=== PATIENT | female | born 1960 | race Caucasian/White ===

== ENCOUNTER 2024-03-28 13:38 | Outpatient (RCR) | payer MEDICAID, SELFPAY ==
--- NOTE | 2024-04-01 21:32 | CTCFLWUP_ITS ---
Patient: SHAWNEE RUBIN : 1960 Page 5 of 6 FOLLOW UP NOTE DATE OF SERVICE: 03/29/2024 NAME: SHAWNEE RUBIN ACCOUNT: [id number] : 1960 AGE: 63 DIAGNOSIS: Recurrent follicular lymphoma S/p 6 cycles of R-CHOP (01/23/2008?05/07/2008) Covid infection 04/09/2020. S/p 6 cycles of bendamustine and rituximab (06/30/2020?10/28/2020) Status post maintenance rituximab every 2 months (01/01/2021?01/24/2023) REASON FOR TODAY?S VISIT: This is office follow-up visit. Ms. Rubin is here at [facility]. Patient at the last visit was complaining of abdominal fullness. Patient had a PET CT scan and is here for review. She also complains of mild occasional nausea. Denies any weigh t loss. Denies any fevers or night sweats. Denies any cough, chest pain or leg cramps. Ambulating well without any help. 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 11/24/2007: Patient had right facial submaxillary lymph node biopsy? 12/08/2007: Bone marrow biopsy and aspiration? 01/23/2008?05/07/2008: Patient had 6 cycles of Rituxan, Cytoxan and doxorubicin. For the first cycle she received vincristine. Unfortunately she developed significant constipation. Vincristine was dis continued. January 2020: Patient felt a small lump in the right side of the neck. February 2020: Patient started feeling a lump in the left axilla as well as a bloated feeling in the a bdomen. 02/14/2020: Left axillary mass fine-needle aspiration? 03/24/2020: PET CT scan? 04/09/2020: Ms. Rubin was diagnosed with Covid infection. Recovered well from the infection 05/14/2020: Bone marrow biopsy and aspiration? normal female karyotype, 46, XX 06/06/2020: Left axillary lymph node excision biopsy? 07/08/2020?09/03/2020: Ms. Rubin received 3 cycles of bendamustine and rituximab. 09/20/2020: PET CT scan? 01/01/2021: Patient is started on maintenance rituximab every 2 months. 03/03/2021: CT scan of the chest abdomen and pelvis with IV contrast? 02/16/2022: CT scan of the chest with IV contrast? 01/24/2023: Ms. Rubin had last dose of maintenance rituximab. PAST MEDICAL HISTORY: Non-Hodgkins?Lymphoma PAST SURGICAL HISTORY: MONICA-BSO -1989 Tonsillectomy - 1966 - 1988 MEDICATIONS: 1. clonazePAM - 1 mg 1 tab Every day before sleep 2. rOPINIRole - 0.5 mg 1 tab Daily 3. vitamin D3-vitamin K2 - 1,250-200 mcg 1 Capsule Daily 4. vitamin K2 - 180 mcg 1 Capsule Daily Medications Last Reconciled by Marcie Frost MA on 01/04/2024 ALLERGIES: Compazine REVIEW OF SYSTEMS: Neurological: No headache, seizures or blurring of vision. Gastrointestinal: No nausea, vomiting, diarrhea or constipation. Cardiovascular: No palpitations or angina pains. Respiratory: No cough, chest pain or shortness of breath. PHYSICAL EXAMINATION: VITAL SIGNS: Temperature?98.9, B/P?115/80, Oxygen?Saturation?97% Weight?152?lbs PAIN: 0 - No pain Conjunctiva pink. Neck is supple. No adenopathy palpable in the neck axilla or in the inguinal regions. Chest clear to auscultation. No wheezes or rails audible. Abdomen is soft. No hepatosplenomegaly palpable. Extremities no clubbing or cyanosis noted. LABORATORY DATA: Date Time ASSESSMENT: 1. Patient with history of recurrent follicular lymphoma treated twice with R-CHOP followed by treatm ent with BR in 2022 history of follicular lymphoma in 2007 treated with R-CHOP chemotherapy without vincristine as descri bed above. Recurrent follicular lymphoma. PET CT scan done prior to starting chemotherapy showed enlarged lymph nodes above and below the diaphragm as described above. Left axillary lymph node biopsy confirmed grade 1?2 follicular lymphoma. Status post 6 cycles of bendamustine and rituximab. Status post maintenance rituximab completed on 01/24/2023. Bone marrow biopsy and aspiration results came back negative for lymphoma involvement On April 09, 2020 patient was diagnosed with Covid infection Her recent PET CT scan in 03/01 is negative for recurrence Will check for LDH and uric acid CBC CMP and RTC in 6 months Patient will be followed with the labs and clinical examination every 6 months and imaging only if sy mptomatic or concerning physical findings. . Electronically Signed by: {Object.Sanct_ID*PnP.NameFL@M}, {Object.Sanct_ID*PnP.Suffix@U} D: {Object.Sanct_Date} T: {Object.Sanct_Time} CC: Munir?Nancie,? PCP: Qasim Jansen Referring: Qasim Jansen This document was completed utilizing speech recognition software. Grammatical errors, random word in sertions, pronoun errors, and incomplete sentences are an occasional consequence of this system due t o software limitations, ambient noise, and hardware issues. Any formal questions or concerns about th e content, text or information contained within the body of this dictation should be directly address ed to the provider for clarification.
== END 2024-04-07 23:59 | disposition home or self-care (01) ==
LOC: SCTC 13:38
PROVIDERS: PCP Family Medicine; Referring Provider Internal Medicine; Visit Provider Internal Medicine Hematology & Oncology
DX: Z08 Encounter for follow-up examination after completed treatment for malignant neoplasm (principal); Z85.72 Personal history of non-Hodgkin lymphomas; Z92.21 Personal history of antineoplastic chemotherapy; R11.0 Nausea
CPT/HCPCS: 99212; G0463

== ENCOUNTER → 2024-05-11 | Outpatient (CLI) | payer MEDICAID, SELFPAY ==
[2024-05-11 14:31] LABS: Basophils % (Auto) 0 % (0-2.5); Eosinophils # (Auto) 0.1 Thou/mm3 (0.0-0.5); Eosinophils % (Auto) 2 % (0-10); Hematocrit 43.1 % (36.0-46.0); Hemoglobin 14.4 g/dL (12.0-16.0); Immature Granulocytes % (Auto) 0 % (0-0); Immature Granulocytes Auto 0.02 Thou/mm3 (0.00-0.00); Lymphocytes # (Auto) 1.8 Thou/mm3 (1.0-4.8); Lymphocytes % (Auto) 31 % (10-50); Mean Corpuscular HGB Conc 33.4 g/dl (31.0-37.0); Mean Corpuscular Hemoglobin 30.2 pg (25.0-35.0); Mean Corpuscular Volume 90 fL (80-100); Monocytes # (Auto) 0.5 Thou/mm3 (0.0-0.8); Monocytes % (Auto) 9 % (0-12); Neutrophils # (Auto) 3.3 Thou/mm3 (1.8-7.7); Neutrophils % (Auto) 58 % (37-80); Nucleated Red Blood Cell % 0 /100 WBC (0); Platelet Count 234 Thou/mm3 (140-440); RDW Standard Deviation 42.6 fL (36.4-46.3); Red Blood Count 4.77 Miln/mm3 (4.00-5.20); White Blood Count 5.7 Thou/mm3 (3.6-11.0)
[2024-05-11 15:02] LABS: Alanine Aminotransferase 22 U/L (10-49); Albumin/Globulin Ratio 2.8 (1.2-2.2); Alkaline Phosphatase 88 U/L (46-116); Anion Gap 8 (7-16); Aspartate Amino Transferase 14 U/L (0-34); BUN/Creatinine Ratio 13 Ratio (12-20); Bilirubin,Total 0.8 mg/dL (0.3-1.2); Blood Urea Nitrogen 13 mg/dL (9-23); C-Reactive Protein < 0.4 mg/dL (0.0-0.9); Carbon Dioxide 28.6 mMol/L (20.0-31.0); Chloride 104 mMol/L (98-107); Globulin 1.8 gm/dL (2.3-3.5); Glucose 96 mg/dL (74-106); LDH (Lactate Dehydrogenase) 195 U/L (120-246); Osmolality,Calculated 281 (275-295); Potassium 4.2 mMol/L (3.4-5.1); Sodium 141 mMol/L (136-145); Total Protein 6.8 gm/dL (5.7-8.2); Vitamin B12 387 pg/mL (211-911); Vitamin D 25 Hydroxy Total 25.5 ng/mL (7.3-40.2); eGFR > 60 See Note
[2024-05-11 15:03] LABS: Sed Rate (ESR) 6 mm/hr (0-30)
[2024-05-17 06:26] LABS: ANA Screen, IFA NEGATIVE (NEGATIVE); T3,Total* 90 ng/dL (76-181)
== END | disposition home or self-care (01) ==
LOC: COPL 12:40
PROVIDERS: PCP Family Medicine; Referring Provider Orthopaedic Surgery; Visit Provider Orthopaedic Surgery
DX: G60.9 Hereditary and idiopathic neuropathy, unspecified (principal)
CPT/HCPCS: 36415; 80053; 82306; 82607; 83615; 83735; 84480; 85025; 85652; 86038; 86140

== ENCOUNTER → 2024-06-18 | Outpatient (CLI) | payer MEDICAID, SELFPAY ==
--- NOTE | 2024-06-18 | XR_ITS ---
EXAMINATION: Ankle, right 3 views . Technique: Ankle AP, oblique, lateral 3 views Date and time of exam: June 18, 2024 at 1221 hours INDICATIONS: Patient fell 2 days ago with injury to the ankle, ankle pain. FINDINGS: Moderate osteopenia No fracture or dislocation No foreign body IMPRESSION: No fracture or dislocation
== END | disposition home or self-care (01) ==
LOC: CDIM 11:08
PROVIDERS: PCP Family Medicine; Referring Provider Orthopaedic Surgery; Visit Provider Orthopaedic Surgery
DX: S99.911A Unspecified injury of right ankle, initial encounter (principal); W19.XXXA Unspecified fall, initial encounter
CPT/HCPCS: 73600

== ENCOUNTER → 2024-06-27 | Outpatient (CLI) | payer MEDICAID, SELFPAY ==
[2024-06-27 12:16] LABS: Basophils % (Auto) 1 % (0-2.5); Eosinophils # (Auto) 0.1 Thou/mm3 (0.0-0.5); Eosinophils % (Auto) 2 % (0-10); Hematocrit 40.6 % (36.0-46.0); Immature Granulocytes % (Auto) 1 % (0-0); Immature Granulocytes Auto 0.03 Thou/mm3 (0.00-0.00); Lymphocytes % (Auto) 35 % (10-50); Mean Corpuscular HGB Conc 34.5 g/dl (31.0-37.0); Mean Corpuscular Hemoglobin 30.6 pg (25.0-35.0); Mean Corpuscular Volume 89 fL (80-100); Monocytes # (Auto) 0.5 Thou/mm3 (0.0-0.8); Monocytes % (Auto) 8 % (0-12); Neutrophils % (Auto) 53 % (37-80); Nucleated Red Blood Cell % 0 /100 WBC (0); Platelet Count 206 Thou/mm3 (140-440); RDW Standard Deviation 42.3 fL (36.4-46.3); Red Blood Count 4.57 Miln/mm3 (4.00-5.20); White Blood Count 5.7 Thou/mm3 (3.6-11.0)
[2024-06-27 12:39] LABS: Alanine Aminotransferase 29 U/L (10-49); Albumin, Serum 4.4 gm/dL (3.4-4.8); Albumin/Globulin Ratio 2.6 (1.2-2.2); Alkaline Phosphatase 109 U/L (46-116); Anion Gap 9 (7-16); Aspartate Amino Transferase 23 U/L (0-34); BUN/Creatinine Ratio 14 Ratio (12-20); Bilirubin,Total 0.5 mg/dL (0.3-1.2); Blood Urea Nitrogen 14 mg/dL (9-23); Calcium 9.7 mg/dL (8.3-10.6); Calcium (Corrected) 9.7 mg/dL (8.5-10.1); Carbon Dioxide 29.1 mMol/L (20.0-31.0); Chloride 104 mMol/L (98-107); Globulin 1.7 gm/dL (2.3-3.5); Glucose 111 mg/dL (74-106); LDH (Lactate Dehydrogenase) 179 U/L (120-246); Osmolality,Calculated 284 (275-295); Potassium 4.1 mMol/L (3.4-5.1); Sodium 142 mMol/L (136-145); Total Protein 6.1 gm/dL (5.7-8.2); Uric Acid 5.8 mg/dL (3.1-7.8); eGFR > 60 See Note
== END | disposition home or self-care (01) ==
PROVIDERS: PCP Internal Medicine Hematology & Oncology; Referring Provider Internal Medicine Hematology & Oncology; Visit Provider Internal Medicine Hematology & Oncology
DX: C85.88 Other specified types of non-Hodgkin lymphoma, lymph nodes of multiple sites (principal)
CPT/HCPCS: 36415; 80053; 83615; 84550; 85025

== ENCOUNTER 2024-06-28 11:28 | Outpatient (RCR) | payer MEDICAID, SELFPAY ==
--- NOTE | 2024-06-28 15:16 | CTCFLWUP_ITS ---
Patient: SHAWNEE RUBIN : 1960 Page 2 of 2 FOLLOW UP NOTE DATE OF SERVICE: 06/28/2024 NAME: SHAWNEE RUBIN ACCOUNT: [id number] : 1960 AGE: 64 INTERVAL HISTORY: Patient doing well. No night sweats or appetite changes. Denies any weight loss. Denies any lumps or bumps anywhere ONCOLOGY HISTORY: DIAGNOSIS: Other specified types of non-Hodgkin lymphoma, lymph nodes of multiple sites [ICD10] C85.88 Recurrent follicular lymphoma S/p 6 cycles of R-CHOP (01/23/2008?05/07/2008) Covid infection 04/09/2020. 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 11/24/2007: Patient had right facial submaxillary lymph node biopsy? 12/08/2007: Bone marrow biopsy and aspiration? 01/23/2008?05/07/2008: Patient had 6 cycles of Rituxan, Cytoxan and doxorubicin. For the first cycle she received vincristine. Unfortunately she developed significant constipation. Vincristine was discontinued. January 2020: Patient felt a small lump in the right side of the neck. February 2020: Patient started feeling a lump in the left axilla as well as a bloated feeling in the abdomen. 02/14/2020: Left axillary mass fine-needle aspiration? 03/24/2020: PET CT scan? 04/09/2020: Ms. Rubin was diagnosed with Covid infection. Recovered well from the infection 05/14/2020: Bone marrow biopsy and aspiration? normal female karyotype, 46, XX 06/06/2020: Left axillary lymph node excision biopsy? 07/08/2020?09/03/2020: Ms. Rubin received 3 cycles of bendamustine and rituximab. 09/20/2020: PET CT scan? 01/01/2021: Patient is started on maintenance rituximab every 2 months. 03/03/2021: CT scan of the chest abdomen and pelvis with IV contrast? 02/16/2022: CT scan of the chest with IV contrast? 01/24/2023: Ms. Rubin had last dose of maintenance rituximab. 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 clonazePAM - 1 mg 1 tab Every day before sleep 2. Lyrica - 75 mg 1 Capsule Every day before sleep 3. rOPINIRole - 0.5 mg 1 tab Daily 4. vitamin D3-vitamin K2 - 1,250-200 mcg 1 Capsule Daily 5. vitamin K2 - 180 mcg 1 Capsule Daily Medications Last Reconciled by Erlinda Barlow MA on 06/28/2024 ALLERGIES: Compazine REVIEW OF SYSTEMS: A complete 14-point review of systems was performed and is negative except as noted in interval history. PHYSICAL EXAMINATION: VITAL SIGNS: Temperature?99.4, B/P?138/85, Oxygen?Saturation?95% Weight?156?lbs PAIN: 0 - No pain ECOG Performance Status: 0 - Asymptomatic and fully active Conjunctiva pink. Neck is supple. No adenopathy palpable in the neck axilla or in the inguinal regions. Chest clear to auscultation. No wheezes or rails audible. Abdomen is soft. No hepatosplenomegaly palpable. Extremities no clubbing or cyanosis noted. LABORATORY DATA: I have personally reviewed and interpreted each of the patient?s relevant lab tests, abnormal findings are below: Date 06/27/24 ??WHITE?BLOOD?COUNT?(Thou/mm3) 5.7 ??RED?BLOOD?COUNT?(Miln/mm3) 4.57 ??HEMOGLOBIN?(gm/dl) 14.0 ??HEMATOCRIT?(%) 40.6 ??PLATELET?COUNT?(Thou/mm3) 206 ??NEUTROPHILS?%,?AUTO?(%) 53 ??LYMPH?%,?AUTO?(%) 35 ??NEUTROPHILS,?AUTO?(Thou/mm3) 3.0 ASSESSMENT/PLAN: Non-Hodgkin lymphoma Patient have diagnosis of follicular lymphoma after he she had a biopsy of left axillary lymph node grade 1-2 Initially diagnosed in 2007 and was treated with R-CHOP without vincristine Recurrence in 2021 Bone marrow biopsy was negative Status post 6 cycles of Bendamustine and rituximab. and was treated with BR followed by maintenance rituximab. Completed on 01/24/2023 Patient since then is cancer free Today clinical examination negative 02/16/[address] scan negative for any cancer recurrence CBC CMP LDH uric acid CT scan RETURN TO CLINIC: 6 months BILLING AND COMPLIANCE: I reviewed external records from providers outside my specialty as summarized above. I spent a total of 50 minutes on this patient?s care on the day of their visit excluding time spent related to any billed procedures. This time includes time spent with the patient as well as time spent documenting in the medical record, reviewing patients records and tests, obtaining history, placing orders, communicating with other healthcare professionals, counseling the patient, family or caregiver, and/or care coordination for the diagnoses above. Electronically Signed by: Carlos Chao MD T: 3:14 PM CC: Lynn? PCP: Carlos Chao Referring: Carlos Chao This document was completed utilizing speech recognition software. Grammatical errors, random word insertions, pronoun errors, and incomplete sentences are an occasional consequence of this system due to software limitations, ambient noise, and hardware issues. Any formal questions or concerns about the content, text or information contained within the body of this dictation should be directly addressed to the provider for clarification.
== END 2024-07-06 23:59 | disposition home or self-care (01) ==
LOC: SCTC 11:28
PROVIDERS: PCP Family Medicine; Referring Provider Internal Medicine Hematology & Oncology; Visit Provider Internal Medicine Hematology & Oncology
DX: Z08 Encounter for follow-up examination after completed treatment for malignant neoplasm (principal); Z85.72 Personal history of non-Hodgkin lymphomas; Z92.21 Personal history of antineoplastic chemotherapy
CPT/HCPCS: 99212; G0463

== ENCOUNTER → 2024-07-30 | Outpatient (CLI) | payer MEDICAID, SELFPAY ==
--- NOTE | 2024-07-30 14:00 | XR_ITS ---
Examination: Bone densitometry Date and time of exam:July 30, 2024 1412 hours INDICATIONS: Hysterectomy age 32, family history, mother, osteoporosis, personal diagnosis non-Hodgkin's lymphoma Technique: Lumbar spine and hip total bone mineralization values of an calculated. Peak reference and age match control results have been displayed. Findings: Lumbar spine total bone mineralization is0.854 gm/cm2. This is 1.8 standard deviations below peak reference. This is 0.2 standard deviations low age-matched controls. Hip total bone mineralization is 0.765 gm/cm2 This is 1.4 standard deviations below peak reference. This is 0.4 standard deviations below age-matched controls Impression: There is osteopenia based on lumbar spine measurements. There is osteoporosis based on hip measurements
== END | disposition home or self-care (01) ==
LOC: CDIM 13:42
PROVIDERS: PCP Family Medicine; Referring Provider Internal Medicine Hematology & Oncology; Visit Provider Internal Medicine Hematology & Oncology
DX: M85.88 Other specified disorders of bone density and structure, other site (principal); M81.0 Age-related osteoporosis without current pathological fracture; C85.88 Other specified types of non-Hodgkin lymphoma, lymph nodes of multiple sites
CPT/HCPCS: 77080

== ENCOUNTER → 2024-09-17 | Outpatient (CLI) | payer MEDICAID, SELFPAY ==
[2024-09-17 14:24] LABS: Basophils % (Auto) 0 % (0-2.5); Eosinophils # (Auto) 0.2 Thou/mm3 (0.0-0.5); Eosinophils % (Auto) 2 % (0-10); Hematocrit 43.2 % (36.0-46.0); Hemoglobin 14.6 g/dL (12.0-16.0); Immature Granulocytes % (Auto) 0 % (0-0); Immature Granulocytes Auto 0.03 Thou/mm3 (0.00-0.00); Lymphocytes # (Auto) 2.5 Thou/mm3 (1.0-4.8); Lymphocytes % (Auto) 29 % (10-50); Mean Corpuscular HGB Conc 33.8 g/dl (31.0-37.0); Mean Corpuscular Hemoglobin 30.2 pg (25.0-35.0); Mean Corpuscular Volume 89 fL (80-100); Monocytes # (Auto) 0.8 Thou/mm3 (0.0-0.8); Monocytes % (Auto) 9 % (0-12); Neutrophils # (Auto) 5.2 Thou/mm3 (1.8-7.7); Neutrophils % (Auto) 60 % (37-80); Nucleated Red Blood Cell % 0 /100 WBC (0); Platelet Count 229 Thou/mm3 (140-440); RDW Standard Deviation 41.5 fL (36.4-46.3); Red Blood Count 4.84 Miln/mm3 (4.00-5.20); White Blood Count 8.7 Thou/mm3 (3.6-11.0)
[2024-09-17 14:34] LABS: Alanine Aminotransferase 35 U/L (10-49); Albumin, Serum 4.7 gm/dL (3.4-4.8); Albumin/Globulin Ratio 2.2 (1.2-2.2); Alkaline Phosphatase 87 U/L (46-116); Anion Gap 11 (7-16); Aspartate Amino Transferase 25 U/L (0-34); BUN/Creatinine Ratio 15 Ratio (12-20); Bilirubin,Total 0.6 mg/dL (0.3-1.2); Blood Urea Nitrogen 16 mg/dL (9-23); Calcium 9.6 mg/dL (8.3-10.6); Calcium (Corrected) 9.6 mg/dL (8.5-10.1); Carbon Dioxide 29.5 mMol/L (20.0-31.0); Chloride 103 mMol/L (98-107); Creatinine (Component) 1.1 mg/dL (0.6-1.3); Globulin 2.1 gm/dL (2.3-3.5); Glucose 101 mg/dL (74-106); Osmolality,Calculated 286 (275-295); Potassium 4.6 mMol/L (3.4-5.1); Sodium 143 mMol/L (136-145); Total Protein 6.8 gm/dL (5.7-8.2); eGFR 57 See Note
== END | disposition home or self-care (01) ==
LOC: SCTO 13:11
PROVIDERS: PCP Family Medicine; Referring Provider Internal Medicine Hematology & Oncology; Visit Provider Internal Medicine Hematology & Oncology
DX: C85.88 Other specified types of non-Hodgkin lymphoma, lymph nodes of multiple sites (principal)
CPT/HCPCS: 36415; 80053; 85025

== ENCOUNTER → 2024-11-29 | Outpatient (CLI) | payer BC, SELFPAY ==
--- NOTE | 2024-11-29 09:19 | XR_ITS ---
Examination: Diagnostic digital mammography, unilateral, left Computer aided detection 3-D breast Tomosynthesis, unilateral Date and time of exam: November 29, 2024 0925 hours INDICATIONS: Mammogram March 06, 2024 focal asymmetry retroareolar region left breast Technique: Nonmagnified MLO, CC views of the left breast have been obtained, reconstructed from 3-D Tomosynthesis images. R2 computer aided detection program utilized for evaluation of suspicious masses and/or abnormal calcifications. 3-D Tomosynthesis images obtained. Findings: Scattered areas of fibroglandular density Stable asymmetry retroareolar region left breast Impression: BI-RADS category 2: Benign findings,. Recommend 6 6 month bilateral mammography follow-up
== END | disposition home or self-care (01) ==
PROVIDERS: Referring Provider Internal Medicine Hematology & Oncology; Visit Provider Internal Medicine Hematology & Oncology
DX: R92.322 Mammographic fibroglandular density, left breast (principal); C85.88 Other specified types of non-Hodgkin lymphoma, lymph nodes of multiple sites
CPT/HCPCS: 77061; 77065; G0279

== ENCOUNTER 2025-01-11 16:53 | Emergency (ER) | payer BC, SELFPAY ==
--- NOTE | 2025-01-11 16:57 | EKG_ITS ---
[facility] Test Date: 2025-01-11 Pat Name: ZELDA ORTEGA Department: Room: - Gender: Female Accident Report Clerk: : 1960 Requested By: ED Temporary Provider Order Number: [id number] Reading MD: ED Temporary Provider Measurements Intervals [place] Rate: 115 P: 34 SC: 151 QRS: -36 QRSD: 84 T: 31 QT: 361 QTc: 500 Interpretive Statements SINUS TACHYCARDIA WITH OCCASIONAL VENTRICULAR PREMATURE COMPLEXES WITH FREQUENT SUPRAVENTRICULAR PREMATURE COMPLEXES LEFT AXIS DEVIATION [QRS AXIS < -30] LOW QRS VOLTAGE IN PRECORDIAL LEADS [QRS DEFLECTION < 1.0 mV IN CHEST LEADS] POSSIBLE ANTERIOR MYOCARDIAL INFARCTION , PROBABLY OLD [30 ms Q WAVE IN V3/V4, OR R < 0.2 mV IN V4] Compared to ECG 06/05/2020 09:40:08 Ventricular premature complex(es) now present Left-axis deviation now present Myocardial infarct finding now present Sinus rhythm no longer present /store/[id number].pdf
--- NOTE | 2025-01-11 16:57 | EKG_ITS ---
[facility] Test Date: 2025-01-11 Pat Name: ZELDA ORTEGA Department: Room: - Gender: Female [employer]: : 1960 Requested By: ED Temporary Provider Order Number: [id number] Reading MD: ED Temporary Provider Measurements Intervals [place] Rate: 111 P: 30 UT: 161 QRS: -43 QRSD: 82 T: 34 QT: 329 QTc: 447 Interpretive Statements SINUS TACHYCARDIA WITH OCCASIONAL ECTOPIC PREMATURE COMPLEXES POSSIBLE LEFT ATRIAL ENLARGEMENT [-0.1mV P-WAVE IN V1/V2] LEFT AXIS DEVIATION [QRS AXIS < -30] LOW QRS VOLTAGE IN PRECORDIAL LEADS [QRS DEFLECTION < 1.0 mV IN CHEST LEADS] POSSIBLE ANTERIOR MYOCARDIAL INFARCTION , PROBABLY OLD [30 ms Q WAVE IN V3/V4, OR R < 0.2 mV IN V4] Compared to ECG 06/05/2020 09:40:08 Left-axis deviation now present Myocardial infarct finding now present Sinus rhythm no longer present /store/[id number].pdf
[2025-01-11 17:05] VITALS: BP 143/89; PULSE 115; RESP 20; TEMP 37.3; O2SAT 96; BMI 27.1
--- NOTE | 2025-01-11 17:14 | XR_ITS ---
Examination: PA lateral chest 2 views Technique: Upright PA lateral chest 2 views Date and time: January 11, 2025, 1720 hrs. Indications: Shortness of breath weakness dizziness beginning 3 days ago. Findings: Normal heart size. Lungs are clear. The osseous structures are intact. Impression: No active disease.
--- NOTE | 2025-01-11 17:14 | PD.EDRME ---
Rapid Medical Screening Exam RME Arrival date/time: 01/11/25 16:53 64-year-old female with no known medical history presents to the emergency room with a chief complaint of palpitations, chest pain x 3 days I have greeted and performed a focused initial assessment of this patient. A comprehensive ED assessment and evaluation of the patient, analysis of all test results, and completion of the medical decision making process will be conducted by additional ED providers. Chief Complaint: Arrhythmia/Palpitations Vital signs: Vital Signs Temperature 99.2 F 01/11/25 17:05 Pulse Rate 115 H 01/11/25 17:05 Respiratory Rate 20 01/11/25 17:05 Blood Pressure 143/89 H 01/11/25 17:05 Pulse Oximetry (%) 96 01/11/25 17:05 Oxygen Delivery Method Room Air 01/11/25 17:05 Vital signs reviewed by provider: Yes
[2025-01-11 17:57] LABS: Basophils # (Auto) 0.1 Thou/mm3 (0.0-0.2); Basophils % (Auto) 1 % (0-2.5); Eosinophils # (Auto) 0.2 Thou/mm3 (0.0-0.5); Eosinophils % (Auto) 2 % (0-10); Hematocrit 42.9 % (36.0-46.0); Hemoglobin 14.7 g/dL (12.0-16.0); Immature Granulocytes Auto 0.02 Thou/mm3 (0.00-0.00); Lymphocytes # (Auto) 3.0 Thou/mm3 (1.0-4.8); Lymphocytes % (Auto) 35 % (10-50); Mean Corpuscular HGB Conc 34.3 g/dl (31.0-37.0); Mean Corpuscular Hemoglobin 30.8 pg (25.0-35.0); Mean Corpuscular Volume 90 fL (80-100); Monocytes # (Auto) 0.7 Thou/mm3 (0.0-0.8); Monocytes % (Auto) 8 % (0-12); Neutrophils # (Auto) 4.6 Thou/mm3 (1.8-7.7); Neutrophils % (Auto) 54 % (37-80); Nucleated Red Blood Cell # 0.00 Thou/mm3 (0.00-0.00); Nucleated Red Blood Cell % 0 /100 WBC (0); Platelet Count 212 Thou/mm3 (140-440); RDW Standard Deviation 42.5 fL (36.4-46.3); Red Blood Count 4.78 Miln/mm3 (4.00-5.20); White Blood Count 8.5 Thou/mm3 (3.6-11.0)
[2025-01-11 18:04] LABS: Collection Type, Urine Clean Catch
[2025-01-11 18:08] LABS: B-Type Natriuretic Peptide 32 pg/mL (0-100)
[2025-01-11 18:10] LABS: Bilirubin,Urine Negative (Negative); Blood,Urine 1+ (Negative); Clarity,Urine Clear (Clear/Hazy); Color,Urine Lt-Yellow (Lt Yel-Yel); Culture Indicated,Urine Not Indicated; Glucose, Urine Negative (Negative); Ketones,Urine Negative (Negative); Leukocyte Esterase,Urine Positive (Negative); Nitrite,Urine Negative (Negative); PH,Urine 5.5 (5.0-7.0); Protein,Urine Negative (Neg - Trace); RBC,Urine 3 /hpf (0-3); Specific Gravity,Urine 1.014 (1.001-1.035); Squamous Epithelial Cell,Urine < 1 /hpf (0-5); Urobilinogen,Urine Negative mg/dL (0.0-1.0); WBC,Urine 9 /hpf (0-5)
[2025-01-11 18:10] LABS: INR 1.0 (0.9-1.3); Partial Thromboplastin Time 24.9 Seconds (22.0-36.0); Prothrombin Time 10.9 Seconds (9.0-12.2)
[2025-01-11 18:13] LABS: Alanine Aminotransferase 28 U/L (10-49); Albumin, Serum 4.8 gm/dL (3.4-4.8); Albumin/Globulin Ratio 2.7 (1.2-2.2); Alkaline Phosphatase 82 U/L (46-116); Anion Gap 12 (7-16); Aspartate Amino Transferase 24 U/L (0-34); BUN/Creatinine Ratio 10 Ratio (12-20); Bilirubin,Total 0.7 mg/dL (0.3-1.2); Blood Urea Nitrogen 13 mg/dL (9-23); Calcium 10.4 mg/dL (8.3-10.6); Calcium (Corrected) 10.4 mg/dL (8.5-10.1); Carbon Dioxide 27.3 mMol/L (20.0-31.0); Chloride 105 mMol/L (98-107); Creatinine (Component) 1.3 mg/dL (0.6-1.3); Estimated Creatinine Clearance 43.6 mL/min (>60); Free T4 (Free Thyroxine) 1.48 ng/dL (0.89-1.76); Globulin 1.8 gm/dL (2.3-3.5); Glucose 112 mg/dL (74-106); Magnesium 1.9 mg/dL (1.6-2.6); Osmolality,Calculated 287 (275-295); Potassium 3.4 mMol/L (3.4-5.1); Sodium 144 mMol/L (136-145); Thyroid Stimulating Hormone 2.95 uIU/mL (0.55-4.78); Total Protein 6.6 gm/dL (5.7-8.2); Troponin I < 0.020 ng/mL (0.0-0.045); eGFR 46 See Note
[2025-01-11 18:36] VITALS: BP 112/89; PULSE 89; RESP 18; TEMP 37.1; O2SAT 97
[2025-01-11 18:41] VITALS: PULSE 108
--- NOTE | 2025-01-11 18:41 | PD.EDARRY ---
ED Arrhythmia Palp. RME/HPI General Chief Complaint: Arrhythmia/Palpitations Stated Complaint: ARRYTHMIAS X 3 DAYS, WORSE TODAY/DIZZY, LIGHTHEADE Time Seen by Provider: 01/11/25 17:15 Arrival date/time: 01/11/25 16:53 RME / HPI RME / HPI narrative: 01/11/25 16:53 64-year-old female with no known medical history presents to the emergency room with a chief complaint of palpitations, chest pain x 3 days I have greeted and performed a focused initial assessment of this patient. A comprehensive ED assessment and evaluation of the patient, analysis of all test results, and completion of the medical decision making process will be conducted by additional ED providers. ------ Dr. Corado?s Main ED Evaluation: 64yo female with a history of non-Hodgkin's lymphoma in remission for the last 2 years presents to the ED for a chief complaint of palpitations for the last 2 days. Patient's palpitations were initially intermittent, but became constant today. She reports associated lightheadedness, a headache described as pressure in nature, shortness of breath, and general malaise. She was unable to walk around the grocery store today without feeling short of breath and fatigued, so she came in for evaluation. Patient denies any chest pain. Denies any consumption of energy drink, new medications, or illicit drug use. Patient does take Pregablin for neuropathy. Related Data Home Medications ?Medication ?Instructions ?Recorded ?Confirmed clonazepam 1 mg tablet 1 mg PO QDAY 05/13/20 06/05/20 ropinirole 0.5 mg tablet 1 mg PO QDAY 01/11/25 01/11/25 Previous Rx's ?Medication ?Instructions ?Recorded metoclopramide HCl 10 mg tablet 10 mg PO Q6H PRN nausea and 07/11/20 (Reglan) vomiting #20 tabs metoprolol tartrate 25 mg tablet 25 mg PO QDAY #30 tabs 01/11/25 Allergies Allergy/AdvReac Type Severity Reaction Status Date / Time prochlorperazine Allergy Severe Anaphylaxis Verified 06/06/20 15:16 Review of Systems Review of Systems Systems Reviewed: All systems reviewed, normal except as documented Past Medical History Past Medical History NEUROLOGIC: Negative Neurological Disorders, Seizures or Migraine CARDIAC: Negative Cardiac Disorders, Hypercholesterolemia or Congestive Heart Failure RESPIRATORY: Negative Chronic Obstructive Pulmonary Disease (COPD), Asthma, Bronchitis, Pneumonia or Sleep Apnea GASTROINTESTINAL: Positive Gastrointestinal Disorders, Hiatal Hernia and Gastroesophageal Reflux Disease GENITOURINARY: Negative Genitourinary Disorders or Renal Disease REPRODUCTIVE: Positive Previous Pregnancies MUSCULOSKELETAL: Positive Musculoskeletal Disorders; Negative Arthritis or Fractures ENT: Positive Cataracts ENDOCRINE: Negative Endocrine Disorders, Diabetes Mellitus Type 1 or Diabetes Mellitus Type 2 HEMATOLOGIC: Negative Anemia PSYCHO/SOCIAL: Positive Depression and Anxiety OTHER HISTORY: Positive Chemotherapy (//), Chicken Pox, Mumps and Cancer (non hodgekins lymphoma); Negative Shingles, Falls, Blood Transfusions, Blood Transfusion Reaction, Anesthesia Reactions, Radiation Therapy or Measles Family History FAMILY HISTORY: Positive Family Cardiac Disorders and Family Gastrointestinal Problems Surgical History SURGICAL: Positive Tonsillectomy and Hysterectomy; Negative Abdominal Surgery Social History SMOKING STATUS: Never smoker ED Exam Narrative Physical exam: Generally patient is alert not obviously tachypneic and in no obvious distress, heart regular rate and rhythm in the 90s, lungs clear to auscultation equal bilaterally, neck showed no goiter, extremities show no edema, neurologic exam no focal motor deficits with Alesha Coma Scale 15, skin is warm pale and dry Course Course Course Narrative: CXR is ordered for determining the etiology of palpitations. Quality Measures none Orders Category Date Time Status EKG (ED ONLY) *Do not use* NOW Care 01/11/25 16:57 Completed EKG (ED Only) Stat Exams 01/11/25 16:57 Ordered EKG (ED Only) Urgent Exams 01/11/25 16:57 Draft XR chest 2V Stat Exams 01/11/25 17:14 Completed B-Type Natriuretic Peptide Stat Lab 01/11/25 17:34 Completed CBC Stat Lab 01/11/25 17:34 Completed Comprehensive Metabolic Panel Stat Lab 01/11/25 17:34 Completed Free T4 (Free Thyroxine) Stat Lab 01/11/25 17:34 Completed Magnesium Stat Lab 01/11/25 17:34 Completed Partial Thromboplastin Time Stat Lab 01/11/25 17:34 Completed Prothrombin Time with INR Stat Lab 01/11/25 17:34 Completed TSH [Thyroid Stimulating Hormone] Stat Lab 01/11/25 17:34 Completed Troponin I Stat Lab 01/11/25 17:34 Completed Urinalysis, C/S if Indicated Stat Lab 01/11/25 17:45 Completed Vital Signs Vital signs: Vital Signs Temperature 99.2 F 01/11/25 17:05 Pulse Rate 115 H 01/11/25 17:05 Respiratory Rate 20 01/11/25 17:05 Blood Pressure 143/89 H 01/11/25 17:05 Pulse Oximetry (%) 96 01/11/25 17:05 Oxygen Delivery Method Room Air 01/11/25 17:05 Arrhythmia/Palpitations MDM Narrative MDM Narrative:: Scribe Attestation: 01/11/25 - Jose, Laine George am scribing for and in the presence of Dr. Corado. Differential diagnosis: Anemia, pulmonary hypertension, pulmonary embolism, acidosis, acute coronary syndrome, cardiac tamponade, electrolyte abnormality I interpreted all labs. There was no significant abnormality. No electrolyte abnormality. Thyroid was normal. EKG done at 5:01 PM shows sinus tachycardia at a rate of 115 with occasional PACs. No ischemic changes. Chest x-ray was normal. CT scan of the chest with IV contrast showed no evidence of pulmonary embolism and no acute abnormality without evidence for right ventricular enlargement or cardiac tamponade. I do long discussion with the patient about the findings. There was no anemia. We will try the patient on metoprolol 25 mg p.o. x 1 here in the emergency room. Metoprolol as prescribed. 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 Thomas which she is to keep. Take the metoprolol as prescribed. Return to ER as needed or condition worsens. Patient data External records reviewed:: [facility] previous records (Per chart review, patient was seen here on 07/11/20 for acute hypokalemia.) Clinical information provided by:: patient Social determinants that could affect healthcare access:: none Patient has the following chronic illnesses:: Non-Hodgkin lymphoma in remission How is presenting disease/condition affected by chronic disease/condition?: uneffected by Evaluation data The following diagnostics were reviewed and interpreted by me:: lab results, radiology exam(s) and EKG tracing(s) Lab and/or radiology exams considered but not ordered:: none Interpretation Summary: [facility] Report Signed Patient: ZELDA ORTEGA. Record#: [id number] Birthdate: 1960 Age/Sex: 64 / F Location: [facility] Attending Dr: Ordering Physician: Kristopher PerezP Date of Service: 01/11/25 Procedure(s): XR chest 2V Accession Number(s): [id number] cc: Kristopher Perez; Oliver Dye MD~ Examination: PA lateral chest 2 views Technique: Upright PA lateral chest 2 views Date and time: January 11, 2025, 1720 hrs. Indications: Shortness of breath weakness dizziness beginning 3 days ago. Findings: Normal heart size. Lungs are clear. The osseous structures are intact. Impression: No active disease. Dictated By: Oliver Dye MD Signed By: <Electronically signed by Oliver Dye MD in OV> 01/11/25 1729 [facility] Signed Patient: ZELDA ORTEGA Record#: [id number] Birthdate: 1960 Age/Sex: 64 / F Location: [facility] Attending Dr: Ordering Physician: Gennaro Corado DO Date of Service: 01/11/25 Procedure(s): CT angio chest Accession Number(s): [id number] cc: Qasim Jansen; Oliver Dye MD; Gennaro Corado DO~ Examination: CTA chest with intravenous contrast 2-D reconstructions 3-D reconstructions, vascular Date and time of exam: January 11, 2025, 2025 hrs., Comparison February 16, 2022 Indications: Tachycardia coughing chest pain shortness of breath beginning 3 days ago. CTDI: vol (mGy) 16.66 DLP: (mGycm) 333 Technique: Multiple axial sections of the thorax have been obtained. 3 mm slice thickness, from below the hemidiaphragms to above the apices of the lungs. Mediastinal and lung density settings have been obtained. 2-D sagittal and coronal reconstructions. 3-D angiographic renderings, 3-D volume renderings, 3D post processing, vascular maximum intensity projections obtained. Contrast administered is 100 cc Isovue-370. Low dose protocols were performed. One or more of the following dose reduction techniques were used; automated exposure control, adjustment of the mA and/or KV according to patient size, use of iterative reconstruction technique. Findings: No thoracic cardiac The osseous structures are intact No thoracic aortic aneurysmal dilatation or dissection. Pulmonary artery segments are not enlarged. No pulmonary artery filling defects No pneumonia pulmonary edema or pleural disease No visualized liver or splenic lesion No gallstones No pancreatic or adrenal mass No hydronephrosis Impression: Negative for pulmonary artery emboli Negative for pulmonary artery hypertension No pneumonia, pulmonary edema or pleural disease Dictated By: Oliver Dye MD Signed By: <Electronically signed by Oliver Dye MD in OV> 01/11/252119 Medications / Prescriptions Medications or Prescriptions considered but not ordered:: none Medication administrations:: none Consultations Consultation(s) initiated? (list below): No Diagnosis Differential diagnosis arrhythmia/palpitations: other (See MDM) Most likely diagnosis given after review of the tests above:: see clinical impression below Admission Indicated Admission indicated?: not indicated Admission Request Was there a request for admission?: No Disposition Plan Disposition Plan: Discharge Discharge Attestation Discharge Attestation: The patient and all family members were given an opportunity to ask questions and understood the discharge instructions. Discharge instructions specifically effects, indications for sooner follow up or return to the emergency department, and the expected course of current diagnosis. Patient condition: Stable Critical Care Time Critical Care Time Critical Care Time: Yes Total Critical Care Time (min.): 35 Attestation: Excluding other billable procedures Discharge Plan Plan Patient Disposition: HOME (Self Care) Prescriptions/Referrals Prescriptions/Med Rec: New metoprolol tartrate 25 mg tablet 25 mg PO QDAY Qty: 30 0RF No Action clonazepam 1 mg Tablet 1 mg PO QDAY metoclopramide HCl [Reglan] 10 mg tablet 10 mg PO Q6H PRN (Reason: nausea and vomiting) Qty: 20 0RF ropinirole 0.5 mg tablet 1 mg PO QDAY Patient Comments: TAKE 1 TABLET BY MOUTH EVERYDAY AT BEDTIME Referrals: Qasim Jansen MD [Primary Care Provider] - In 1 week Problem List Clinical Impression: Palpitations, Sinus tachycardia Patient/Caregiver Discharge Instructions Education Materials: ED Palpitations Additional Instructions: Metoprolol as prescribed. Keep your follow-up appointment in [address] Thomas. Return to ER as needed or if condition worsens. Print Language: Canadian Stand Alone Forms: [facility] Award Info., Patient Portal Info Letter
--- NOTE | 2025-01-11 18:53 | XR_ITS ---
Examination: CTA chest with intravenous contrast 2-D reconstructions 3-D reconstructions, vascular Date and time of exam: January 11, 2025, 2025 hrs., Comparison February 16, 2022 Indications: Tachycardia coughing chest pain shortness of breath beginning 3 days ago. CTDI: vol (mGy) 16.66 DLP: (mGycm) 333 Technique: Multiple axial sections of the thorax have been obtained. 3 mm slice thickness, from below the hemidiaphragms to above the apices of the lungs. Mediastinal and lung density settings have been obtained. 2-D sagittal and coronal reconstructions. 3-D angiographic renderings, 3-D volume renderings, 3D post processing, vascular maximum intensity projections obtained. Contrast administered is 100 cc Isovue-370. Low dose protocols were performed. One or more of the following dose reduction techniques were used; automated exposure control, adjustment of the mA and/or KV according to patient size, use of iterative reconstruction technique. Findings: No thoracic cardiac The osseous structures are intact No thoracic aortic aneurysmal dilatation or dissection. Pulmonary artery segments are not enlarged. No pulmonary artery filling defects No pneumonia pulmonary edema or pleural disease No visualized liver or splenic lesion No gallstones No pancreatic or adrenal mass No hydronephrosis Impression: Negative for pulmonary artery emboli Negative for pulmonary artery hypertension No pneumonia, pulmonary edema or pleural disease
[2025-01-11 20:07] LABS: Troponin I < 0.020 ng/mL (0.0-0.045)
[2025-01-11 20:50] VITALS: BP 123/84; PULSE 87; RESP 18; TEMP 37.1; O2SAT 97
[2025-01-11] MEDS: ACETAMINOPHEN 325 MG TABLET 650 MG PO (21:24)
[2025-01-11 21:52] LABS: Amphetamine/Methamp Scrn,U Negative (Negative); Barbiturate Screen,Urine Negative (Negative); Benzodiazepines Screen,Urine Negative (Negative); Benzoylecgonine Screen, Ur Negative (Negative); Fentanyl Screen,Urine Negative (Negative); Opiate Screen,Urine Negative (Negative); THC Screen,Urine Negative (Negative)
[2025-01-11 22:00] VITALS: BP 120/77; PULSE 75; RESP 16; TEMP 36.9; O2SAT 97
[2025-01-11 22:13] VITALS: BP 120/77; PULSE 85
[2025-01-11] MEDS: METOPROLOL TARTRATE 25 MG TABLET PO (22:13)
== END 2025-01-11 22:19 | disposition home or self-care (01) ==
PROVIDERS: Nurse Practitioner Family; Emergency Provider Emergency Medicine; PCP Internal Medicine
DX: R00.2 Palpitations (principal); R00.0 Tachycardia, unspecified; C85.9A Non-Hodgkin lymphoma, unspecified, in remission; G62.9 Polyneuropathy, unspecified; Z79.899 Other long term (current) drug therapy
CPT/HCPCS: 36415; 71046; 71275; 80053; 80307; 81001; 83735; 83880; 84439; 84443; 84484; 85025; 85610; 85730; 93005; 99284; A4649; Q9967; A9270

== ENCOUNTER → 2025-03-05 | Outpatient (CLI) | payer BC, SELFPAY ==
--- NOTE | 2025-03-05 08:45 | XR_ITS ---
EXAMINATION: PET/CT FUSION SKULL TO THIGH EXAM DATE AND TIME: March 05, 2025 9:58 a.m., comparison August 05, 2022 PET/CT scan, CT a chest 01/11/2025, PET/CT scan February 16, 2024 INDICATIONS: Diagnosis non-Hodgkin's lymphoma, restaging posttreatment CTDI:vol (mGy) 4.22 DLP: (mGycm) 385.66 PROCEDURE: 16.1 mCi FDG was administered intravenously To allow for distribution and uptake of radiotracer, the patient was allowed to rest quietly in a shielded room. Imaging was performed on an integrated 16-slice PET/CT scanner, with scanning from the skull base to the mid thigh. Serum blood glucose at the time of the injection was measured 102 mg/dL. CT scanning was performed without oral or intravenous contrast material. FINDINGS: Head and Neck: There is no mando hypermetabolism in the neck. The visualized portions of the brain are normal in appearance on CT. Chest: There is no mando hypermetabolism in the chest. There are no pulmonary nodules. Abdomen and Pelvis: There is no mando hypermetabolism in retroperitoneal or pelvic chains. The spleen is normal in size and FDG avidity. Musculoskeletal: Marrow uptake is within normal range. IMPRESSION: No interval recurrent tumor
== END | disposition home or self-care (01) ==
LOC: CDIM 08:18
PROVIDERS: PCP Internal Medicine; Referring Provider Internal Medicine Hematology & Oncology; Visit Provider Internal Medicine Hematology & Oncology
DX: C85.88 Other specified types of non-Hodgkin lymphoma, lymph nodes of multiple sites (principal)
CPT/HCPCS: 78815; A9552